=== PATIENT | female | born 2000 | race African-American/Black ===

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

== ENCOUNTER 2020-11-17 15:36 | Emergency (ER) | payer SELFPAY ==
[~2020-11-17] VITALS: Ht 165.1 cm; Wt 78.3 kg
[2020-11-17 15:36] VITALS: BP 135/71
--- NOTE | 2020-11-17 15:58 | PHYS DOC ---
Past History Past Medical History: No Pertinent History Past Surgical History: No Surgical History Smoking: Non-smoker Alcohol Use: None Drug Use: None General Adult EDM: Chief Complaint: TEST HPI: HPI: 20-year-old female presents for evaluation . The patient took some home test that said she was . She has never been before and wants confirmation. She is also not sure what the next steps are. She has no other complaints at this time. She does wonder if she is anemic. Review of Systems: Review of Systems: Constitutional: Denies fever or chills Eyes: Denies change in visual acuity HENT: Denies nasal congestion or sore throat Respiratory: Denies cough or shortness of breath Cardiovascular: Denies chest pain or edema GI: Denies abdominal pain, nausea, vomiting, bloody stools or diarrhea : Denies dysuria Musculoskeletal: Denies back pain or joint pain Integument: Denies rash Neurologic: Denies headache, focal weakness or sensory changes Endocrine: Denies polyuria or polydipsia Lymphatic: Denies swollen glands Psychiatric: Denies depression or anxiety Allergies: Allergies: Allergies Coded Allergies Type Severity Reaction Last Updated Verified amoxicillin Allergy Unknown 03/12/19 Yes sulfamethoxazole Allergy Unknown 03/12/19 Yes trimethoprim Allergy Unknown 03/12/19 Yes Physical Exam: PE: Constitutional: Well developed, well nourished, no acute distress, non-toxic appearance. [] HENT: Normocephalic, atraumatic, bilateral external ears normal, oropharynx moist, no oral exudates, nose normal. [] Eyes: PERRLA, EOMI, conjunctiva normal, no discharge. [] Neck: Normal range of motion, no tenderness, supple, no stridor. [] Cardiovascular: Heart rate regular rhythm, no murmur [] Lungs & Thorax: Bilateral breath sounds clear to auscultation [] Abdomen: Bowel sounds normal, soft, no tenderness, no masses, no pulsatile masses. [] Skin: Warm, dry, no erythema, no rash. [] Back: No tenderness, no CVA tenderness. [] Extremities: No tenderness, no cyanosis, no clubbing, ROM intact, no edema. [] Neurologic: Alert and oriented X 3, normal motor function, normal sensory function, no focal deficits noted. [] Psychologic: Affect normal, judgement normal, mood normal. [] EKG: EKG: [] Radiology/Procedures: Radiology/Procedures: [] Heart Score: C/O Chest Pain: N/A Risk Factors: Risk Factors: DM, Current or recent (<one month) smoker, HTN, HLP, family history of CAD, obesity. Risk Scores: Score 0 - 3: 2.5% MACE over next 6 weeks - Discharge Home Score 4 - 6: 20.3% MACE over next 6 weeks - Admit for Clinical Observation Score 7 - 10: 72.7% MACE over next 6 weeks - Early Invasive Strategies Course & Med Decision Making: Course & Med Decision Making Pertinent Labs and Imaging studies reviewed. (See chart for details) Patient's labs are significant for anemia with a hemoglobin of 8.5. I have made the patient aware of this result. Her urine test is positive. Her hCG is 53. I will discharge her with a prescription for vitamins. I have given her instructions to contact an [facility] to make an appointment. She is stable for discharge at this time. [] Mary Beth Disclaimer: Mary Beth Disclaimer: This electronic medical record was generated, in whole or in part, using a voice recognition dictation system. Departure Departure: Impression: Primary Impression: Qualified Codes: Z3A.01 - Less than 8 weeks gestation of Additional Impression: Anemia Qualified Codes: D64.9 - Anemia, unspecified Disposition: 01 HOME / SELF CARE / HOMELESS Condition: STABLE Referrals: PCP,NO (PCP) Patient Instructions: - First Trimester, Vsby-[id number] Scripts Pnv With Ca,No.72/Iron,Carb/Fa ( PLUS IRON TABLET) 1 Each Tablet 1 TAB PO DAILY for for 30 Days, #30 TAB 1 Refill Prov: OLLIE WINSLOW DO 11/17/20 OLLIE WINSLOW DO November 17, 2020 15:58
[2020-11-17 16:28] LABS: BASO % 0 % (0-3); EOS # 0.1 x10^3/uL (0.0-0.7); EOS % 2 % (0-3); HEMATOCRIT 28.8 % (36.0-47.0); HEMOGLOBIN 8.5 g/dL (12.0-15.5); LYMPH # 1.8 x10^3/uL (1.0-4.8); LYMPH % 31 % (24-48); MEAN CORPUSCULAR HEMOGLOBIN 19 pg (25-35); MEAN CORPUSCULAR HGB CONC 29 g/dL (31-37); MEAN CORPUSCULAR VOLUME 64 fL (79-100); MONO # 0.6 x10^3/uL (0.0-1.1); MONO % 10 % (0-9); NEUT # 3.3 x10^3uL (1.8-7.7); NEUT % 56 % (31-73); PLATELET COUNT 214 x10^3/uL (140-400); RED BLOOD COUNT 4.53 x10^6/uL (3.50-5.40); RED CELL DISTRIBUTION WIDTH 20.4 % (11.5-14.5); WHITE BLOOD COUNT 5.9 x10^3/uL (4.0-11.0)
[2020-11-17 16:37] LABS: CALCIUM 8.8 mg/dL (8.5-10.1); CREATININE 0.8 mg/dL (0.6-1.0); GFR 110.7; POTASSIUM 3.7 mmol/L (3.5-5.1)
[2020-11-17 16:43] LABS: ALBUMIN 3.8 g/dL (3.4-5.0); TOTAL BILIRUBIN 0.2 mg/dL (0.2-1.0); TOTAL PROTEIN 7.6 g/dL (6.4-8.2)
[2020-11-17] MEDS ORDERED: PNV1TABL34 PO (16:44)
[2020-11-17 17:11] LABS: ANISOCYTOSIS MOD; HYPOCHROMIA MOD; MICROCYTOSIS MOD; PLT ESTIMATE ADEQUATE (ADEQUATE); POLYCHROMASIA SLIGHT
[2020-11-17 17:12] LABS: OVALOCYTES OCC; TARGET CELLS OCC; TEAR DROP CELLS OCC
== END 2020-11-17 17:29 | disposition home or self-care (01) ==
LOC: ER 15:36
DX: O99.011 Anemia complicating pregnancy, first trimester (principal); Z3A.01 Less than 8 weeks gestation of pregnancy
CPT/HCPCS: 36415; 80053; 81025; 84702; 85025; 99283-25

== ENCOUNTER 2020-12-11 13:36 | Emergency (ER) | payer MEDICAID ==
[~2020-12-11] VITALS: Ht 165.1 cm; Wt 77.8 kg
[~2020-12-11 13:36] MED LIST: PNV1TABL34 PO
--- NOTE | 2020-12-11 14:16 | PHYS DOC ---
Past History Past Medical History: Asthma (LEBRON SOSA APRN) Past Surgical History: No Surgical History (LEBRON SOSA APRN) Smoking: Non-smoker Alcohol Use: None Drug Use: None (LEBRON SOSA APRN) General Adult EDM: Chief Complaint: DIZZY/LIGHT HEADED HPI: HPI: Patient is a 20-year-old female who presents with dizziness that started about 2 hours ago. Patient states that she was cleaning when the dizziness started. Patient reports symptoms only lasted a few minutes. Denies dizziness at this time. Patient denies nausea/vomiting/diarrhea. Patient's last menstrual period was 10/19. Patient denies abdominal pain or spotting. Patient states that she has a history of anemia. G1, P0. (LEBRON SOSA APRN) Review of Systems: Review of Systems: Constitutional: Denies fever or chills Eyes: Denies change in visual acuity HENT: Denies nasal congestion or sore throat Respiratory: Denies cough or shortness of breath Cardiovascular: Denies chest pain or edema GI: Denies abdominal pain, nausea, vomiting, bloody stools or diarrhea : Denies dysuria Musculoskeletal: Denies back pain or joint pain Integument: Denies rash Neurologic: Denies headache, focal weakness or sensory changes. Reports dizziness. Endocrine: Denies polyuria or polydipsia Lymphatic: Denies swollen glands Psychiatric: Denies depression or anxiety (LEBRON SOSA APRN) Allergies: Allergies: Allergies Coded Allergies Type Severity Reaction Last Updated Verified amoxicillin Allergy Unknown 12/11/20 Yes sulfamethoxazole Allergy Unknown 12/11/20 Yes trimethoprim Allergy Unknown 12/11/20 Yes (LEBRON SOSA APRN) Physical Exam: PE: Constitutional: Well developed, well nourished, no acute distress, non-toxic appearance. [] HENT: Normocephalic, atraumatic, bilateral external ears normal, oropharynx moist, no oral exudates, nose normal. [] Eyes: PERRLA, EOMI, conjunctiva normal, no discharge. [] Neck: Normal range of motion, no tenderness, supple, no stridor. [] Cardiovascular:Heart rate regular rhythm, no murmur [] Lungs & Thorax: Bilateral breath sounds clear to auscultation [] Abdomen: Bowel sounds normal, soft, no tenderness, no masses, no pulsatile masses. [] Skin: Warm, dry, no erythema, no rash. [] Back: No tenderness, no CVA tenderness. [] Extremities: No tenderness, no cyanosis, no clubbing, ROM intact, no edema. [] Neurologic: Alert and oriented X 3, normal motor function, normal sensory function, no focal deficits noted. [] Psychologic: Affect normal, judgement normal, mood normal. [] (LEBRON SOSA APRN) Current Patient Data: Vital Signs: Vital Signs Date Time Temp Pulse Resp B/P (MAP) Pulse Ox O2 Delivery O2 Flow Rate FiO2 12/11/20 13:48 98.8 93 14 119/65 (83) 100 (LEBRON SOSA APRN) EKG: EKG: [] (LEBRON SOSA APRN) Radiology/Procedures: Radiology/Procedures: [] (LEBRON SOSA APRN) Heart Score: C/O Chest Pain: No Risk Factors: Risk Factors: DM, Current or recent (<one month) smoker, HTN, HLP, family history of CAD, obesity. Risk Scores: Score 0 - 3: 2.5% MACE over next 6 weeks - Discharge Home Score 4 - 6: 20.3% MACE over next 6 weeks - Admit for Clinical Observation Score 7 - 10: 72.7% MACE over next 6 weeks - Early Invasive Strategies (LEBRON SOSA APRN) Course & Med Decision Making: Course & Med Decision Making Pertinent Labs and Imaging studies reviewed. (See chart for details) [] 20-year-old female presents with dizziness that started about 2 hours ago whi le she was cleaning her house. Patient reports symptoms only lasted a few minutes. Patient denies symptoms at this time. Patient does have a history of anemia. Patient reports that she has been eating and drinking as usual. Denies nausea/vomiting/diarrhea. CBC ordered to rule out anemia. EKG showed sinus rhythm. Orthostatics ordered to rule out orthostatic hypotension.. Orthostatics are negative. Patient states she feels much better after fluids. UA is negative for infection. Hgb 10.5,MCV 69. RDW 27.1. Patient has a history of anemia. Instructed patient to continue taking her and to follow-up with the health department since she does not currently have an established relationship with an OB. Patient is hemodynamically stable and able to ambulate out of the emergency room on her own.Patient given strict return precautions. Patient states that she understands discharge plan and is appreciative. (LEBRON SOSA APRN) Course & Med Decision Making I reviewed this chart and spoke with mother, confirmed two pt identifiers, over the phone. Attempted to see if pt could followup with pcp for u/a check in 24 hours and to check in on pt. Mother informed me pt would call me back at hospital mother. Possible uti in . Pt did not call back. (SANGEETA JEAN BAPTISTE DO) Dragon Disclaimer: DragBenchling Disclaimer: This electronic medical record was generated, in whole or in part, using a voice recognition dictation system. (LEBRON SOSA APRN) Departure Departure: Impression: Primary Impression: Dizziness Additional Impression: Anemia during Disposition: 01 HOME / SELF CARE / HOMELESS Condition: STABLE Referrals: PCP,NO (PCP) Patient Instructions: Dizziness, [id number], - Anemia During Additional Instructions: You were seen in the emergency room for dizziness. Please contact [facility] to make an appointment for OB services. Continue taking your vitamin. Return to the emergency room if you have worsening symptoms or concerns. [facility] [address] [place], [place] [phone] EMERGENCY DEPARTMENT GENERAL DISCHARGE INSTRUCTIONS Thank you for coming to [facility] (ED) today and trusting us with you care. We trust that you had a positivie experience in our Emergency Department. If you wish to speak to the department management, you may call the director at [phone]. YOUR FOLLOW UP INSTRUCTIONS ARE FOLLOWS: 1. Do you have a private Doctor? If you do not have a private doctor, please ask for a resource list of physicians or clinics that may be able to assist you with follow up care. 2. The Emergency Physician has interpreted your x-rays. The X-Ray specialist will also review them. If there is a change in the findings, you will be notified in 48 hours when at all possible. 3. A lab test or culture has been done, your results will be reviewed and you will be notified if you need a change in treatment. ADDITIONAL INSTRUCTIONS AND INFORMATION: 1. Your care today has been supervised by a physician who is specially trained in emergency care. Many problems require more than one evaluation for a complete diagnosis and treatment. We recommend that you schedule your follow up appointment as recommended to ensure complete treatment of you illness or injury. If you are unable to obtain follow up care and continue to have a problem, or if your condition worsens, we recommend that you return to the ED. 2. We are not able to safely determine your condition over the phone nor are we able to give sound medical advice over the phone. For these safety reasons, if you call for medical advice we will ask you to come to the ED for further evaluation. 3. If you have any questions regarding these discharge instructions please call the ED at [phone]. SAFETY INFORMATION: In the interest of safety, wellness, and injury prevention; we encourage you to wear your sealbelt, if you smoke; quite smoking, and we encourage family to use a protec tive helmet for bicycling and other sporting events that present an increased risk for head injury. IF YOUR SYMPTOMS WORSEN OR NEW SYMPTOMS DEVELOP, OR YOU HAVE CONCERNS ABOUT YOUR CONDITION; OR IF YOUR CONDITION WORSENS WHILE YOU ARE WAITING FOR YOUR FOLLOW UP APPOINTMENT; EITHER CONTACT YOUR PRIMARY CARE DOCTOR, THE PHYSICIAN WHOSE NAME AND NUMBER YOU WERE GIVEN, OR RETURN TO THE ED IMMEDIATELY. LEBRON SOSA APRN Dec 11, 2020 14:16 SANGEETA JEAN BAPTISTE DO Dec 16, 2020 09:58
[2020-12-11] MEDS ORDERED: IV NORMAL SALINE 1,000ML 1,000 ML IV ONE (14:30)
[2020-12-11 14:41] LABS: BACTERIA,URINE MANY /HPF (0-FEW); BILIRUBIN,URINE NEG (NEG); CLARITY,URINE CLOUDY; COLOR,URINE YELLOW; GLUCOSE,URINE NEG (NEG); NITRITE,URINE NEG (NEG); RBC,URINE 0 /HPF (0-2); UROBILINOGEN,URINE 0.2 mg/dL (0.2 mg/dL); WBC,URINE RARE /HPF (0-4)
[2020-12-11 14:42] LABS: SQUAMOUS EPITHELIAL CELL,UR OCC /LPF
[2020-12-11 15:04] LABS: BASO % 1 % (0-3); EOS # 0.1 x10^3/uL (0.0-0.7); EOS % 2 % (0-3); HEMATOCRIT 34.2 % (36.0-47.0); HEMOGLOBIN 10.5 g/dL (12.0-15.5); LYMPH # 1.7 x10^3/uL (1.0-4.8); LYMPH % 26 % (24-48); MEAN CORPUSCULAR HEMOGLOBIN 21 pg (25-35); MEAN CORPUSCULAR HGB CONC 31 g/dL (31-37); MEAN CORPUSCULAR VOLUME 69 fL (79-100); MONO # 0.9 x10^3/uL (0.0-1.1); MONO % 14 % (0-9); NEUT # 3.9 x10^3uL (1.8-7.7); NEUT % 58 % (31-73); PLATELET COUNT 236 x10^3/uL (140-400); RED BLOOD COUNT 4.96 x10^6/uL (3.50-5.40); RED CELL DISTRIBUTION WIDTH 27.1 % (11.5-14.5); WHITE BLOOD COUNT 6.7 x10^3/uL (4.0-11.0)
--- NOTE | 2020-12-11 15:10 | EKG ---
[address] [address] Test Date: 2020-12-11 Test Time: 15:02:50 Pat Name: MATTI AGUILAR Department: Room: Gender: F Food Service Aide: : 2000 Requested By: LEBRON SOSA Order Number: [id number] Reading MD: Measurements Intervals [place] Rate: 74 P: 47 ID: [id number] QRS: 33 QRSD: 78 T: 11 QT: 358 QTc: 398 Interpretive Statements SINUS RHYTHM NORMAL ECG RI6.02 No previous ECG available for comparison
[2020-12-11 15:15] LABS: CALCIUM 9.4 mg/dL (8.5-10.1); CREATININE 0.8 mg/dL (0.6-1.0); GFR 110.7; POTASSIUM 3.4 mmol/L (3.5-5.1)
[2020-12-11 15:16] LABS: U PREG PATIENT POSITIVE (NEG)
[2020-12-11 15:47] LABS: % EOS 1 % (0-5); % LYMPHS 27 % (24-48); % MONOS 11 % (0-10); % SEGS 61 % (35-66); ANISOCYTOSIS MARKED; HYPOCHROMIA MOD; MICROCYTOSIS MARKED; PLT ESTIMATE ADEQUATE (ADEQUATE)
[2020-12-11 16:42] VITALS: BP 106/62
== END 2020-12-11 16:43 | disposition home or self-care (01) ==
LOC: ER 13:36
DX: O99.011 Anemia complicating pregnancy, first trimester (principal); D64.9 Anemia, unspecified; O99.511 Diseases of the respiratory system complicating pregnancy, first trimester; J45.909 Unspecified asthma, uncomplicated; Z3A.01 Less than 8 weeks gestation of pregnancy; Z88.1 Allergy status to other antibiotic agents; Z88.2 Allergy status to sulfonamides
CPT/HCPCS: 36415; 80048; 81001; 81025; 85007; 85025; 87086; 93005; 96360; 99284; J7030

== ENCOUNTER 2021-01-16 15:08 | Emergency (ER) | payer MEDICAID ==
[~2021-01-16] VITALS: Ht 165.1 cm; Wt 81.5 kg
[2021-01-16 15:08] VITALS: BP 133/74
[2021-01-16 16:46] LABS: BASO % 0 % (0-3); EOS # 0.1 x10^3/uL (0.0-0.7); EOS % 1 % (0-3); HEMATOCRIT 36.6 % (36.0-47.0); HEMOGLOBIN 11.7 g/dL (12.0-15.5); LYMPH # 2.3 x10^3/uL (1.0-4.8); LYMPH % 26 % (24-48); MEAN CORPUSCULAR HEMOGLOBIN 24 pg (25-35); MEAN CORPUSCULAR HGB CONC 32 g/dL (31-37); MEAN CORPUSCULAR VOLUME 77 fL (79-100); MONO # 0.9 x10^3/uL (0.0-1.1); MONO % 10 % (0-9); NEUT # 5.7 x10^3uL (1.8-7.7); NEUT % 64 % (31-73); PLATELET COUNT 211 x10^3/uL (140-400); RED BLOOD COUNT 4.77 x10^6/uL (3.50-5.40); RED CELL DISTRIBUTION WIDTH 26.1 % (11.5-14.5)
[2021-01-16 16:57] LABS: CALCIUM 8.8 mg/dL (8.5-10.1); CREATININE 0.6 mg/dL (0.6-1.0); GFR 154.2
[2021-01-16 16:58] LABS: BILIRUBIN,URINE NEG (NEG); CLARITY,URINE CLEAR; COLOR,URINE YELLOW; GLUCOSE,URINE NEG (NEG); NITRITE,URINE NEG (NEG); UROBILINOGEN,URINE 0.2 mg/dL (0.2 mg/dL)
[2021-01-16 17:03] LABS: ALBUMIN 3.4 g/dL (3.4-5.0); ALBUMIN/GLOBULIN RATIO 0.9 (1.0-1.7); TOTAL BILIRUBIN 0.1 mg/dL (0.2-1.0)
[2021-01-16 17:03] LABS: BACTERIA,URINE MANY /HPF (0-FEW); RBC,URINE 0 /HPF (0-2); SQUAMOUS EPITHELIAL CELL,UR MOD /LPF
--- NOTE | 2021-01-16 17:20 | RAD ---
EXAM: Obstetrics sonogram. HISTORY: Congestion and dizziness. TECHNIQUE: Sonographic imaging of the pelvis was performed. COMPARISON: None. FINDINGS: The uterus measures 13.4 x 8.9 x 7.6 cm. There is a single intrauterine gestational sac wit h pole. The crown-rump length is 6.3 cm, corresponding with a gestational age of 12 weeks and 5 days. There is a normal heart rate of 163 bpm. The estimated due date based on ultrasoun d measurements is 07/26/2021. The ovaries are normal in size and demonstrate normal blood flow. The ge stational sac is normal in configuration and location. IMPRESSION: Single intrauterine fetus with normal heart rate and gestational age based on ultrasound measurements of 12 weeks and 5 days. Electronically signed by: Judie Narayanan MD (01/16/2021 5:17 PM) [id number]
[2021-01-16 17:29] LABS: PLT ESTIMATE ADEQUATE (ADEQUATE)
[2021-01-16 17:30] LABS: ANISOCYTOSIS MOD
[2021-01-16 17:31] LABS: HYPOCHROMIA PRESENT
--- NOTE | 2021-01-16 17:50 | PHYS DOC ---
Past History Past Medical History: Asthma (BAO DUNLAP INDUSTRIAL SPRAYPAINTER) Past Surgical History: No Surgical History (BAO DUNLAP APRN) Smoking: Non-smoker Alcohol Use: None Drug Use: None (BAO DUNLAP APRN) Adult General Chief Complaint Chief Complaint: DIZZY/LIGHT HEADED HPI HPI Patient is a 20-year-old female patient 1 para 0 currently 12 weeks presented to the ED today complaining of dizziness nasal congestion and heartburn. Patient states symptoms have been going on intermittently for the last 1 to 2 weeks. Denies any fever, coughing or congestion. She states she has not been able to see her DELIVERY MAN for her because they gave her an appointment for March. (BAO DUNLAP INDUSTRIAL SPRAYPAINTER) Review of Systems Review of Systems Constitutional: Denies fever or chills [] Eyes: Denies change in visual acuity, redness, or eye pain [] HENT: Reports nasal congestion, denies sore throat [] Respiratory: Denies cough or shortness of breath [] Cardiovascular: No additional information not addressed in HPI [] GI: Reports , reports heartburn, denies abdominal pain, nausea, vomiting, bloody stools or diarrhea [] : Denies dysuria or hematuria [] Musculoskeletal: Denies back pain or joint pain [] Integument: Denies rash or skin lesions [] Neurologic: Denies headache, focal weakness or sensory changes [] All other systems were reviewed and found to be within normal limits, except as documented in this note. (BAO DUNLAP INDUSTRIAL SPRAYPAINTER) Allergies Allergies Allergies Coded Allergies Type Severity Reaction Last Updated Verified amoxicillin Allergy Unknown 12/11/20 Yes sulfamethoxazole Allergy Unknown 12/11/20 Yes trimethoprim Allergy Unknown 12/11/20 Yes (BAO DUNLAP INDUSTRIAL SPRAYPAINTER) Physical Exam Physical Exam Constitutional: Well developed, well nourished, no acute distress, non-toxic appearance. [] HENT: Normocephalic, atraumatic, bilateral external ears normal, oropharynx moist, no oral exudates, nose normal. [] Eyes: PERRLA, EOMI, conjunctiva normal, no discharge. [] Neck: Normal range of motion, no tenderness, supple, no stridor. [] Cardiovascular:Heart rate regular rhythm, no murmur [] Lungs & Thorax: Bilateral breath sounds clear to auscultation [] Abdomen: Bowel sounds normal, soft, no tenderness, no masses, no pulsatile masses. [] Skin: Warm, dry, no erythema, no rash. [] Back: No tenderness, no CVA tenderness. [] Extremities: No tenderness, no cyanosis, no clubbing, ROM intact, no edema. [] Neurologic: Alert and oriented X 3, normal motor function, normal sensory function, no focal deficits noted. [] Psychologic: Affect normal, judgement normal, mood normal. [] (BAO DUNLAP APRN) Current Patient Data Lab Results Laboratory Tests Test 01/16/21 15:55 01/16/21 16:20 Urine Collection Type Unknown Urine Color Yellow Urine Clarity Clear Urine pH 7.0 Urine Specific [place] 1.025 Urine Protein Neg (NEG-TRACE) Urine Glucose (UA) Neg mg/dL (NEG) Urine Ketones (Stick) Neg mg/dL (NEG) Urine Blood Neg (NEG) Urine Nitrite Neg (NEG) Urine Bilirubin Neg (NEG) Urine Urobilinogen Dipstick 0.2 mg/dL (0.2 mg/dL) Urine Leukocyte Esterase Neg (NEG) Urine RBC 0 /HPF (0-2) Urine WBC 1-4 /HPF (0-4) Urine Squamous Epithelial Cells Mod /LPF Urine Bacteria Many /HPF (0-FEW) White Blood Count 9.0 x10^3/uL (4.0-11.0) Red Blood Count 4.77 x10^6/uL (3.50-5.40) Hemoglobin 11.7 g/dL (12.0-15.5) L Hematocrit 36.6 % (36.0-47.0) Mean Corpuscular Volume 77 fL (79-100) L Mean Corpuscular Hemoglobin 24 pg (25-35) L Mean Corpuscular Hemoglobin Concent 32 g/dL (31-37) Red Cell Distribution Width 26.1 % (11.5-14.5) H Platelet Count 211 x10^3/uL (140-400) Neutrophils (%) (Auto) 64 % (31-73) Lymphocytes (%) (Auto) 26 % (24-48) Monocytes (%) (Auto) 10 % (0-9) H Eosinophils (%) (Auto) 1 % (0-3) Basophils (%) (Auto) 0 % (0-3) Neutrophils # (Auto) 5.7 x10^3uL (1.8-7.7) Lymphocytes # (Auto) 2.3 x10^3/uL (1.0-4.8) Monocytes # (Auto) 0.9 x10^3/uL (0.0-1.1) Eosinophils # (Auto) 0.1 x10^3/uL (0.0-0.7) Basophils # (Auto) 0.0 x10^3/uL (0.0-0.2) Platelet Estimate Adequate (ADEQUATE) Large Platelets Mod Hypochromasia Present Anisocytosis Mod Maternal Serum HCG Beta Subunit 727350 mIU/mL (0-6) H Sodium Level 138 mmol/L (136-145) Potassium Level 4.0 mmol/L (3.5-5.1) Chloride Level 103 mmol/L (98-107) Carbon Dioxide Level 26 mmol/L (21-32) Anion Gap 9 (6-14) Blood Urea Nitrogen 12 mg/dL (7-20) Creatinine 0.6 mg/dL (0.6-1.0) Estimated GFR (Cockcroft-Gault) 154.2 BUN/Creatinine Ratio 20 (6-20) Glucose Level 76 mg/dL (70-99) Calcium Level 8.8 mg/dL (8.5-10.1) Total Bilirubin 0.1 mg/dL (0.2-1.0) L Aspartate Amino Transferase (AST) 15 U/L (15-37) Alanine Aminotransferase (ALT) 22 U/L (14-59) Alkaline Phosphatase 69 U/L (46-116) Total Protein 7.0 g/dL (6.4-8.2) Albumin 3.4 g/dL (3.4-5.0) Albumin/Globulin Ratio 0.9 (1.0-1.7) L (BAO DUNLAP APRN) EKG EKG [] (BAO DUNLAP APRN) Radiology/Procedures Radiology/Procedures []PROCEDURE: OB <14 WKS EXAM: Obstetrics sonogram. HISTORY: Congestion and dizziness. TECHNIQUE: Sonographic imaging of the pelvis was performed. COMPARISON: None. FINDINGS: The uterus measures 13.4 x 8.9 x 7.6 cm. There is a single intrauterine gestational sac with pole. The crown-rump length is 6.3 cm, corresponding with a gestational age of 12 weeks and 5 days. There is a normal heart rate of 163 bpm. The estimated due date based on ultrasound measurements is 07/26/2021. The ovaries are normal in size and demonstrate normal blood flow. The gestational sac is normal in configuration and location. IMPRESSION: Single intrauterine fetus with normal heart rate and gestational age based on ultrasound measurements of 12 weeks and 5 days. Electronically signed by: Judie Ribeiro MD (01/16/2021 5:17 PM) [id number] DICTATED AND SIGNED BY: JUDIE RIBEIRO MD DATE: 01/16/211715 CC: JACOB KULKARNI MD; BAO DUNLAP APRN; PCP,NO ~MTH0 0 (BAO DUNLAP APRN) Heart Score C/O Chest Pain: N/A Risk Factors: Risk Factors: DM, Current or recent (<one month) smoker, HTN, HLP, family history of CAD, obesity. Risk Scores: Risk Factors: DM, Current or recent (<one month) smoker, HTN, HLP, family h istory of CAD, obesity. (BAO DUNLAP APRN) Course & Med Decision Making Course & Med Decision Making Pertinent Labs and Imaging studies reviewed. (See chart for details) This is a 20-year-old female patient 1 para 0 currently 12 weeks presenting today complaining of dizziness, nasal congestion and heartburn, symptoms for 1 to 2 weeks. Patient has not had a confirmed IUP. CBC with hemoglobin of 11.7, hematocrit 36.6. Encouraged to continue taking vitamins. CMP with no acute findings, UA negative for infection OB ultrasound noted for Single intrauterine fetus with normal heart rate and gestational age based on ultrasound measurements of 12 weeks and 5 days.HR 163 Patient was discharged to home. Encouraged to push fluids. Follow-up with the DELIVERY MAN sooner than March. (BAO DUNLAP APRN) Dragon Disclaimer Dragon Disclaimer This electronic medical record was generated, in whole or in part, using a voice recognition dictation system. (BAO DUNLAP APRN) Departure Departure: Impression: Primary Impression: Dizziness Additional Impressions: Nasal congestion Disposition: HOME / SELF CARE / HOMELESS Condition: STABLE Referrals: PCP,NO (PCP) follow up with your OBGYN in the next 1-2 weeks Patient Instructions: Dizziness, [id number] Additional Instructions: You were evaluated in the emergency room and noted to be 12 weeks 5 days . Your hemoglobin is slightly low at 11.7 with hematocrit of 36.6. C ontinue taking vitamins. Try to increase your dietary fiber intake as well as water intake. Avoid eating greasy spicy foods. Please try and follow- up with your DELIVERY MAN in the next 1 to 2 weeks. Attending Signature Attending Signature I have participated in the care of this patient and I have reviewed and agree with all pertinent clinical information above including history, exam, and recommendations. (DMITRIY CORONEL MD) Problem Qualifiers Additional Impressions: Weeks of gestation: 12 weeks Qualified Codes: Z3A.12 - 12 weeks gestation of BAO DUNLAP APRN Jan 16, 2021 17:50 DMITRIY CORONEL MD Jan 16, 2021 18:04
== END 2021-01-16 17:57 | disposition home or self-care (01) ==
LOC: ER 15:08
DX: O26.891 Other specified pregnancy related conditions, first trimester (principal); R42 Dizziness and giddiness; J45.909 Unspecified asthma, uncomplicated; Z3A.12 12 weeks gestation of pregnancy; Z88.0 Allergy status to penicillin
CPT/HCPCS: 36415; 76801; 80053; 81001; 84702; 85025; 87086; 99284-25

== ENCOUNTER 2021-06-10 15:39 | Emergency (ER) | payer MEDICAID ==
[~2021-06-10] VITALS: Ht 165.1 cm; Wt 97.9 kg
[2021-06-10 15:46] VITALS: BP 128/89
--- NOTE | 2021-06-10 16:04 | PHYS DOC ---
Past History Past Medical History: Asthma Additional Past Medical Histor: CURRENT (CARISA RACHEL APRN) Past Surgical History: No Surgical History (CARISA RACHEL APRN) Smoking: Non-smoker Alcohol Use: None Drug Use: None (CARISA RACHEL APRN) General Adult EDM: Chief Complaint: CONGESTION HPI: HPI: Patient is a 21-year-old female who presents to the emergency department today for nasal/chest congestion, nasal drainage and a green productive cough that started 1 week ago. Patient reports that she has been taking Tylenol Cold and flu without any relief in symptoms. She states she has received 1 dose of her COVID-19 vaccine. She denies any sick exposures or smoking history. Patient is 33 weeks , last menstrual period was October 11, 2020. [facility] [place]. She denies any vaginal bleeding, pelvic pain, abdominal pain, fevers. (CARISA RACHEL APRN) Review of Systems: Review of Systems: Constitutional: See HPI HENT: See HPI Respiratory: See HPI Cardiovascular: See HPI GI: See HPI (CARISA RACHEL APRN) Allergies: Allergies: Allergies Coded Allergies Type Severity Reaction Last Updated Verified amoxicillin Allergy Unknown 12/11/20 Yes sulfamethoxazole Allergy Unknown 12/11/20 Yes trimethoprim Allergy Unknown 12/11/20 Yes (CARISA RACHEL APRN) Physical Exam: PE: Constitutional: Well developed, well nourished, no acute distress, non-toxic appearance. [] HENT: Normocephalic, atraumatic, bilateral external ears normal, oropharynx moist, no tonsillar enlargement, no orpharyngeal erythema, uvula midline, post nasal drainage noted, no trismus, no oral exudates, nose normal. [] Eyes: PERRL, EOMI, conjunctiva normal, no discharge. [] Neck: Normal range of motion, no stridor Cardiovascular:Heart rate regular rhythm, no murmur [] Lungs & Thorax: Bilateral breath sounds clear to auscultation [] Abdomen: Bowel sounds normal, abdomen, no tenderness, no masses, no pulsatile masses. [] Skin: Warm, dry, no erythema, no rash. [] Back: normal ROM Extremities: No tenderness, no cyanosis, no clubbing, ROM intact, no edema. [] Neurologic: Alert and oriented X 3, normal motor function, normal sensory function, no focal deficits noted. [] Psychologic: Affect normal, judgement normal, mood normal. [] (CARISA RACHEL APRN) Current Patient Data: Labs: Laboratory Tests Test 06/10/21 16:30 Influenza Type A (Rapid) Negative Influenza Type B (Rapid) Negative Vital Signs: Vital Signs Date Time Temp Pulse Resp B/P (MAP) Pulse Ox O2 Delivery O2 Flow Rate FiO2 06/10/21 15:46 98.9 110 18 128/89 (102) 99 Room Air (CARISA RACHEL APRN) EKG: EKG: [] (CARISA RACHEL APRN) Radiology/Procedures: Radiology/Procedures: [] (CARISA RACHEL APRN) Heart Score: C/O Chest Pain: N/A Risk Factors: Risk Factors: DM, Current or recent (<one month) smoker, HTN, HLP, family history of CAD, obesity. Risk Scores: Score 0 - 3: 2.5% MACE over next 6 weeks - Discharge Home Score 4 - 6: 20.3% MACE over next 6 weeks - Admit for Clinical Observation Score 7 - 10: 72.7% MACE over next 6 weeks - Early Invasive Strategies (CARISA RACHEL APRN) Course & Med Decision Making: Course & Med Decision Making Pertinent Labs and Imaging studies reviewed. (See chart for details) Patient presents to the emergency department today for nasal/chest congestion, nasal drainage and a productive cough that started 1 week ago. Patient is currently 33 weeks , she denies any related complaints. She states that she has been taking Tylenol Cold and flu at home. Patient was tested in the emergency department today for influenza and COVID-19. Influenza test was negative. When the ER nurse went to swab patient for influenza and Covid, she states that she is only being seen in the emergency department because she went to go to her OBs for a hospital visit and they would not let her if she had any Covid symptoms and they were requiring a Covid test. After patient was swabbed for influenza, she refused Covid testing. Patient's heart tones were 145 bpm. Patient advised to increase her fluids and she can ta ke Delsym cough and chest congestion DM and Tylenol. She can also take flonase at home. She was advised to follow-up with her OB if her symptoms persist. I discussed with patient all findings and diagnostic testing as well as the need to follow-up with PCP for further evaluation and treatment or return to the ER if any new or worsening symptoms. Strict return precautions were also discussed at length. Patient voiced understanding and agreement with the plan. Patient is hemodynamically stable at the time of disposition. (CARISA RACHEL APRN) Dragon Disclaimer: Dragon Disclaimer: This electronic medical record was generated, in whole or in part, using a voice recognition dictation system. (CARISA RACHEL APRN) Attending Co-Sign The patient was seen and interviewed as well as examined at the bedside. The chart was reviewed. The case was discussed. Agree with the plan of care. (OLLIE WINSLOW DO) Departure Departure: Impression: Primary Impression: Nasal congestion Additional Impression: Person under investigation for COVID-19 Disposition: HOME / SELF CARE / HOMELESS Condition: GOOD Referrals: PCP,NO (PCP) Patient Instructions: Allergic Rhinitis, Cough, Adult Additional Instructions: You were seen in the emergency department today for nasal/chest congestion, nasal drainage and a productive cough. You are tested for influenza and that w as negative. You refused Covid testing in the emergency department. Increase your fluids as that will thin your secretions. Please rest. Medications that you can take at home for your symptoms while are Delsym cough/chest congestion DM, Tylenol and Flonase. These medications should help with your congestion and cough. Please follow-up with your primary care provider/OB tomorrow regarding your ER visit. Please return to the emergency department if you develop intractable nausea or vomiting, high fevers refractory to treatment, shortness of breath, chest pain or any new or worsening concerns. CARISA RACHEL APRN Jun 10, 2021 16:04 OLLIE WINSLOW DO Jun 12, 2021 11:11
[2021-06-10 17:20] LABS: INFLUENZA A PATIENT NEGATIVE (NEGATIVE); INFLUENZA B PATIENT NEGATIVE (NEGATIVE)
== END 2021-06-10 17:33 | disposition home or self-care (01) ==
LOC: ER 15:39
DX: O99.513 Diseases of the respiratory system complicating pregnancy, third trimester (principal); R09.81 Nasal congestion; R05.9 Cough, unspecified; J45.909 Unspecified asthma, uncomplicated; Z3A.33 33 weeks gestation of pregnancy; Z88.1 Allergy status to other antibiotic agents; Z88.2 Allergy status to sulfonamides
CPT/HCPCS: 87804; 99283